=== PATIENT | female | born 1955 | race Caucasian/White ===

== ENCOUNTER 2016-07-12 16:17 | Emergency (ER) | payer OTHER ==
--- NOTE | 2016-07-13 02:35 | ED NURSING NOTES ---
Clinical Report - Nurses [facility] [place] [address] 07/12/2016 16:18 [id number] Triage time 16:25 Jul 12 2016. Acuity: LEVEL 4. Chief Complaint: SUICIDAL THOUGHTS and (Alcoholism). 16:35 07/12/16. SEPSIS SCREEN: Sepsis Screen. Negative (no infection suspected/documented). NANCY COMA SCORE: [place] Coma Scale: 15- eyes open spontaneously (4); best verbal response- oriented x 4 (5); best motor response- obeys commands (6). --16:35 Irene Ramachandran R.N. 16:37 07/12/16. BP: 124/85 (regular adult cuff) taken on the left arm, while sitting. HR: 96. RR: 18. O2 saturation: 97% on room air. Temp: 97.6 F (oral). Pain level now: 0/10. --16:38 Irene Ramachandran R.N. Weight: 58 kg stated. Height/Length: 67 inches Per Patient. BMI: 20. --16:27 Irene Ramachandran R.N. Medications Tums Oral. --16:29 Irene Ramachandran R.N. Omeprazole Oral (Tablet Delayed Release 20 mg). --16:29 Irene Ramachandran R.N. Allergies Demerol. --16:30 Irene Ramachandran R.N. morphine. --16:30 Irene Ramachandran R.N. Oxycodone. --16:30 Irene Ramachandran R.N. Tylenol. --16:30 Irene Ramachandran R.N. History Arrived by private vehicle. Historian: patient. Accompanied by family. Primary physician (Dr Ben Felix). Onset: just prior to arrival. ( "if I had a gun I would be right now"). She has had anxiety and sleeping difficulties and describes feelings of depression. Has been feeling agitated. 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 PAST MEDICAL HX: Anxiety. Last normal menstrual period- Hysterectomy. ( alcoholism). SOCIAL HX: Current every day heavy tobacco smoker- 1 pack per day. Heavy alcohol use; consumes liquor. Last drink was 1 hours ago. (1 Gallon vodka a week). No infectious disease exposure. ABUSE ASSESSMENT: No report of abuse. --16:35 Irene Ramachandran R.N. SOCIAL HX: History of occasional drug use: marijuana. (16:44 Jul 12 2016). --16:44 Irene Ramachandran R.N. PROBLEMS: Anxiety Reaction. Depression. Alcoholism. --16:32 Irene Ramachandran R.N. ADDITIONAL SURGERIES: Hysterectomy. Right elbow. --16:32 Irene Ramachandran R.N. Interventions ID band on patient. To treatment room. --16:35 Irene Ramachandran R.N. PHYSICAL ASSESSMENT Ambulatory to room. ( Patient says she is deaf right hear and has osteoporosis and sometimes have pain in rib cage). GENERAL / NEURO / PSYCH: Alert. Oriented X 4. Appears in no acute distress. Appears anxious. Speech within normal limits. Patient's mood/affect appears tearful. Patient appears calm and cooperative. Good eye contact. The patient describes suicidal thoughts (has mentioned things to her daughter but says she is not because she "doesnt want to leave a mess for her kids to clean up"). Patient appears neat and clean. RESPIRATORY: Respirations not labored. Breath sounds within normal limits. CVS: Normal heart rate and rhythm. Capillary refill less than 2 seconds. GI / : Abdomen soft and nontender. Bowel sounds within normal limits. SKIN: Skin intact. Skin is warm. Skin color is within normal limits. --16:39 Irene Ramachandran R.N. NURSING PROGRESS NOTES 16:40 07/12/16. The plan of care for this patient has been created. Head of bed elevated. Reassurance given. Suicide precautions initiated. Two patient identifiers checked. Call light placed in reach. Side rails up x 1. Bed placed in lowest position. Brakes of bed on. Patient ready for evaluation- chart flagged and ED physician notified. --16:40 Irene Ramachandran R.N. ( Patient at in visual location to nurses station, sister at bedside, patient gowned in yellow gown and items taken to locker #5 with Lock #3). --16:55 Irene Ramachandran R.N. 17:05 07/12/2016 Site #1 started via IV in the left antecubital space with an 20g angiocath, with aseptic technique and good blood return; one attempt. Blood drawn: rainbow set. Labeled in the presence of the patient and sent to the lab. Saline lock flushed with 10 mL saline. --17:05 Irene Ramachandran R.N. ( Patients sister left, patient says ok to release information to sister Loyda). --17:28 Irene Ramachandran R.N. ( Patient offered food and drink, she accepted sandwich, cheese, crackers, water and milk). --17:55 Irene Ramachandran R.N. ( Patient sleeping, will not wake for vitals). --19:15 Irene Ramachandran R.N. Care transferred and report given (Darlene RN). --19:31 Irene Ramachandran R.N. ( pt resting in bed, no distress noted). --20:11 Karen Silva ( pt ambulated to the restroom, no complications). --21:12 Karen Silva ( PAT team called). --21:29 Karen Silva 22:00 07/12/16. BP: 110/70. HR: 56. RR: 18. O2 saturation: 97%. Temp: 98.8 F. Pain level now: 0/10. --22:01 Karen Silva ( pt has been medically cleaned by Dr. Chávez). --00:37 Karen Silva ( pt resting in bed at this time, no distress noted.). --01:12 Karen Silva DISPOSITION / DISCHARGE 03:04 07/13/2016 Site #1 removed upon discharge. Catheter intact. Bandaid applied. --03:04 Karen Silva Departure time: 03:04. Condition at departure: stable. No learning barriers present. Discharge instructions provided and reviewed with the patient and family. Reviewed warnings (no driving). Reviewed medication(s) side effects, precautions, dosing and course information. Prescription(s) given to the six sigma black belt engineer. Reviewed referral to Alcoholics Anonymous and crisis hotline. Activity restrictions (no driving) reviewed. Patient and family verbalized understanding. Written instructions provided in Belgian. No treatment instructions, diet instructions, follow up contact number given or stop smoking instructions. No work note given or school note given. The patient was discharged by the physician. She was discharged home and accompanied by family. She left the Emergency Department ambulatory and via private vehicle. Family member driving. FALL RISK ASSESSMENT: Fall risk assessment completed. No fall risk identified. --03:04 Karen Silva 03:02 07/13/16. BP: 112/68. HR: 92. RR: 18. O2 saturation: 98%. Temp: deferred. Pain level now: 0/10. --03:04 Karen Silva Locked/Released at 07/13/2016 3:05 by Karen Silva
--- NOTE | 2016-07-13 02:35 | ED CLINICAL REPORT ---
Clinical Report - Physicians/Mid Levels [facility] [address] [place] [address] 07/12/2016 16:18 Patient: ZAHIDA COWAN Time Seen: 16:29; upon arrival, initial patient contact, initial documentation, patient care assumed. Arrived- By private vehicle. Not in custody. Historian- patient and family. HISTORY OF PRESENT ILLNESS Chief Complaint: ANXIOUS, DEPRESSED and SUICIDAL THOUGHTS and AGITATED. This started about 6 months ago. The patient has experienced situational problems related to personal finances and unemployment but not exhibited a behavior change and was not found wandering. (pt states the problems started about 6 mos ago, when she first went to dr to get help with smoking cessation, placed on chantrix, didn't like the side effects so she stopped taking it, went back to dr, placed on wellbutrin for smoking cessation and depression, lost her job, lost insurance, and then didn't like wellbutrin, so she stopped taking it too, started out with drinking occasional drink at dinner and the drinking got more and more and now she says she is drinking a gallon of vodka a week or more, states she would like to quit drinking and would like help for her suicidal thoughts, depression and anxiety). She is non-compliant with medication. No recent drug use. Recent heavy alcohol consumption. Last drink was less than 12 hours ago. Has not been eating or sleeping. She has had anxiety. Has been depressed. No anger, unusual behavior, paranoia, delusions or self-injury inflicted. No hallucinations. Has had suicidal thoughts (states that if she had a gun, she would be right now). Has highly lethal plan for suicide using gun. The method is unavailable. The symptoms are described as severe. No injury is present. Similar symptoms previously: Recent medical care: Not recently seen/assessed. REVIEW OF SYSTEMS No headache, dizziness, weakness, chest pain or abdominal pain. No vomiting, diarrhea, numbness, fever or difficulty breathing. All systems otherwise negative, except as recorded above. PAST HISTORY See nurses notes. ( PROBLEMS: Anxiety Reaction. Depression. Alcoholism. --16:32 Irene Ramachandran R.N. ADDITIONAL SURGERIES: Hysterectomy. Right elbow. --16:32 Irene Ramachandran R.N.). SOCIAL HISTORY Heavy tobacco smoker. Heavy alcohol use; consumes liquor. Patient is a longstanding alcoholic. History of heavy drug use: marijuana. Has social support. Has place to stay. FAMILY HISTORY Negative. ADDITIONAL NOTES The nursing notes have been reviewed with agreement regarding the chief complaint, HPI, ROS, PMH and patient medications and allergies. PHYSICAL EXAM Vital Signs: 07/12/2016 16:37 BP: 124/85. HR: 96. RR: 18. O2 saturation: 97%. Temp: 97.6 F. Pain level now: 0/10. Have been reviewed as normal and appear to be correct. Appearance: Alert. Appearance is normal. Anxious. She appears intoxicated. Eyes: Pupils equal, round and reactive to light. Neck: Normal inspection. Neck supple. CVS: Normal heart rate and rhythm. Heart sounds normal. Respiratory: Breath sounds normal. Chest nontender. Back: No tenderness. Skin: Skin warm and dry. Normal skin color. Normal skin turgor. Extremities: Extremities exhibit normal ROM. No lower extremity edema. Psych / Neuro: Oriented X 3. Abnormal mood and affect. Appears depressed. Speech normal. Cognition normal. Thought process and content normal. Insight and judgement normal. Cranial nerves normal (as tested). No cerebellar findings. No motor deficit. No sensory deficit. (anxious, tearful). LABS, X-RAYS, AND EKG Laboratory Tests: UA-Culture if indicated: (KAYLEIGH: 07/12/2016 16:45) ( MsgRcvd 07/12/2016 17:25) Final results Test Result Flag Units (Reference) URINE COLOR YELLOW URINE APPEARANCE CLOUDY URINE GLUCOSE NEGATIVE (NEGATIVE) URINE BILIRUBIN NEGATIVE (NEGATIVE) URINE KETONE NEGATIVE (NEGATIVE) URINE SPECIFIC GRAVITY <= 1.005 L (1.010-1.030) URINE PH 6.0 (5.0-8.0) URINE PROTEIN NEGATIVE (NEGATIVE) URINE UROBILINOGEN 0.2 EU/dL (0.2-1.0) URINE NITRITE NEGATIVE (NEGATIVE) URINE BLOOD 2+ (NEGATIVE) URINE LEUK ESTERASE NEGATIVE (NEGATIVE) URINE RBC 1-3 rbc/hpf (0-1) URINE WBC 0-1 wbc/hpf (0-1) URINE EPITHELIAL CELLS >15 EPI/hpf (0-5) URINE BACTERIA FEW (1+) (NONE SEEN) URINE COMMENT CULT NOT INDICATED URINE CULTURES ARE SET-UP BASED ON THE FOLLOWING CRITERIA:POSITIVE NITRITEPOSITIVE LEUKOCYTE ESTERASEGREATER THAN 10 WHITE BLOOD CELLSMODERATE (2+) OR GREATER BACTERIA CBC w Diff: (KAYLEIGH: 07/12/2016 17:00) ( [facility] 07/12/2016 17:20) Final results Test Result Flag Units (Reference) WHITE BLOOD COUNT 12.4 H K/uL (4.5-11.5) RED BLOOD COUNT 4.75 M/uL (4.00-5.20) HEMOGLOBIN 16.9 H gm/dL (12.0-16.0) HEMATOCRIT 49.4 H % (36.0-46.0) MEAN CELL VOLUME 104 H fL (80-100) MEAN CORPUSCULAR HGB 36 H pg (26-34) MEAN CORPUSCULAR HGB CONC 34 g/dL (31-37) RED CELL DISTRIBUTION WIDTH 14.4 % (11.6-14.8) PLATELET COUNT 219 K/uL (150-400) NEUTROPHIL % 54.3 % (50-75) LYMPH % 34.4 % (25-40) MONO % 8.1 % (3-14) EOSINOPHIL % 1.0 % (0-4) BASOPHIL % 2.2 H % (0-2) Ethyl Alcohol: (KAYLEIGH: 07/12/2016 21:00) ( [facility] 07/12/2016 21:25) Final results Test Result Flag Units (Reference) ETHYL ALCOHOL 66 H mg/dL (3-10) Urine Drug Screen: (KAYLEIGH: 07/12/2016 16:45) ( [facility] 07/12/2016 17:30) Final results Test Result Flag Units (Reference) AMPHETAMINE/METHAMPHETAMINE NEGATIVE (NEGATIVE) BARBITURATE NEGATIVE (NEGATIVE) BENZODIAZEPINE NEGATIVE (NEGATIVE) CANNABINOID POSITIVE H (NEGATIVE) COCAINE NEGATIVE (NEGATIVE) ECSTASY POSITIVE H (NEGATIVE) METHADONE NEGATIVE (NEGATIVE) OPIATE NEGATIVE (NEGATIVE) The urine drug screen is a qualitative screening test fordrug overdose and abuse. All screen results should beconsidered as presumptive.Drugs screened for are as follows:BenzodiazepinesCocaineAmphetamines/MetamphetaminesTHC (Tetrahydrocannabinol)OpiatesBarbituratesEcstasyMethadonePositive results are unconfirmed. For confirmation, notifythe lab for the specimen to be sent to the reference lab.All confirmations must be performed by a differentmethodology.The ingestion of natural herbal and plant productscontaining Ephedra/Ephedra metabolites can produce in urineone or more substances capable of cross reacting withamphetamine/methamphetamine immunoassays. These testsprovide a preliminary result only. A more specificalternative chemical method must be used to obtain aconfirmed analytical result. CMP: (KAYLEIGH: 07/12/2016 17:00) ( MsgRcvd 07/12/2016 17:30) Final results Test Result Flag Units (Reference) GLUCOSE 73 mg/dL (70-110) BUN 7 mg/dL (7-18) CREATININE 0.7 mg/dL (0.6-1.3) Estimated GFR >60 mL/min Estimated GFR- >60 mL/min Note: Persistent reduction over 3 months in eGFR<60 mL/min/1.73 m2 defines CKD. Patients with eGFR values>=60 mL/min/1.73 m2 may also have CKD if evidence ofpersistent proteinuria. Additional information may be foundat www.kidney.org. SODIUM 141 mmol/L (136-145) POTASSIUM 3.5 mmol/L (3.5-5.1) CHLORIDE 102 mmol/L (98-107) CARBON DIOXIDE 21 mmol/L (21-32) CALCIUM 8.8 mg/dL (8.5-10.1) TOTAL PROTEIN 7.7 g/dL (6.4-8.2) ALBUMIN 3.6 g/dL (3.3-5.0) BILIRUBIN, TOTAL 0.5 mg/dL (0.0-1.0) ALKALINE PHOSPHATASE 85 U/L (46-116) AST (SGOT) 58 H U/L (15-37) ALT (SGPT) 53 U/L (12-78) ETHYL ALCOHOL 185 H mg/dL (3-10) . PROGRESS AND PROCEDURES Course of Care: 18:25 07/12/16. went to room to discuss lab results, pt asleep, resp even and unlabored, pt snoring, nad, left alone to sleep 21:29 07/12/16. repeat etoh back, asked wood car builder to pat 21:45 07/12/16. went to update pt with lab results, pat being called, and pt was still asleep, resp even and unlabored, nad 23:00 07/12/16. reported off to Dr Chávez whom will assume care, awaiting pat arrival I reviewed the patient's history and study results with her and examined her. My findings were consistent with those noted by Johnny Roxanna except that the patient no longer appears intoxicated. - MW. Patient/family counseled. Differential Diagnosis: Other possible considerations: substance abuse, si, alcoholism, liver disease, bipolar, depression, anxiety. CLINICAL IMPRESSION Suicidal ideation Alcohol intoxication with alcohol dependence. Possible alcohol withdrawal. INSTRUCTIONS No driving or operating machinery while taking medication. Stay with responsible adult family member (or other responsible adult). No alcohol. Seek medical help to quit drinking. (Your sister is to hold your prescription for Librium. She is only to give you the medication for withdrawal symptoms if you have not been drinking alcohol as discussed. The). Warnings: Further evaluation is necessary. GENERAL WARNINGS: Return or contact your physician immediately if your condition worsens or changes unexpectedly, if not improving as expected, or if other problems arise. Prescription Medications: Zofran 4 mg: Take 1 orally every six hours as needed for nausea/vomiting. Dispense ten (10). No refills. Substitution is permissible. Librium 10 mg: take 1 orally every 8 hours as needed. Dispense ten (10). No refill. Substitution is permissible. Follow-up: Follow up with your doctor Friday in two days. Call for an appointment. Follow up with a psychiatrist- as recommended by your primary care physician. Understanding of the discharge instructions verbalized by patient and family. (Electronically signed by Jamal Chávez MD 07/15/2016 9:12)
--- NOTE | 2016-07-13 02:35 | ED ORDER SUMMARY ---
..... Patient: ZAHIDA COWAN OrderSheet [facility] VisitID: [id number] [place] [address] 61y, F Registration Date/Time: 07/12/2016 ORDER SHEET Weight: 58.0 kg (stated) Allergies: Demerol, morphine, Oxycodone, Tylenol GENERAL ORDERS: CBC w Diff Urgent (16:36 07/12/2016 HBivens A.R.N.P.) (Ack 16:41 Prateek) (Sent 16:53 JSanders R.N.) (17:04 JSanders R.N.) CMP Urgent (16:36 07/12/2016 HBivens A.R.N.P.) (Ack 16:41 Prateek) (17:04 JSanders R.N.) UA-Culture if indicated Urgent (16:36 07/12/2016 HBivens A.R.N.P.) (Ack 16:41 Prateek) (16:53 JSanders R.N.) Urine Urgent (16:36 07/12/2016 HBivens A.R.N.P.) (16:39 HBivens A.R.N.P.) (Cancelled: Other16:39 HBivens A.R.N.P.) Urine Drug Screen Urgent (16:36 07/12/2016 HBivens A.R.N.P.) (Ack 16:41 Prateek) (16:53 JSanders R.N.) Ethyl Alcohol Urgent (16:36 07/12/2016 HBivens A.R.N.P.) (Ack 16:41 Prateek) (17:04 JSanders R.N.) Ethyl Alcohol Urgent (18:26 07/12/2016 HBivens A.R.N.P.) (Ack 18:30 Gisel) (22:01 SRedmond) - (call pat) (21:29 07/12/2016 HBivens A.R.N.P.) (21:30 SRedmond) Vitals (21:45 07/12/2016 HBivens A.R.N.P.) (Ack 22:01 Cesar) (23:06 Silke Thompson.NJohnny) MEDICATION ORDERS: IV FLUIDS: IV Saline Lock (16:36 07/12/2016 Lennox A.R.N.P.) (17:05 Mery R.N.) ORDER SHEET NOTES: [Electronically signed by Darlene Martins R.N. (03:05 07/13/2016)] [Electronically signed by Jamal Chávez MD (09:12 07/15/2016)] [Electronically locked/signed by Darlene Martins R.N. (03:05 07/13/2016)]
--- NOTE | 2016-07-13 02:35 | ED ORDER SUMMARY ---
..... Patient: ZAHIDA COWAN OrderSheet [facility] VisitID: [id number] [place] [address] 61y, F Registration Date/Time: 07/12/2016 ORDER SHEET Weight: 58.0 kg (stated) Allergies: Demerol, morphine, Oxycodone, Tylenol GENERAL ORDERS: CBC w Diff Urgent (16:36 07/12/2016 HBivens A.R.N.P.) (Ack 16:41 Prateek) (Sent 16:53 JSanders R.N.) (17:04 JSanders R.N.) CMP Urgent (16:36 07/12/2016 HBivens A.R.N.P.) (Ack 16:41 Prateek) (17:04 JSanders R.N.) UA-Culture if indicated Urgent (16:36 07/12/2016 HBivens A.R.N.P.) (Ack 16:41 Prateek) (16:53 JSanders R.N.) Urine Urgent (16:36 07/12/2016 HBivens A.R.N.P.) (16:39 HBivens A.R.N.P.) (Cancelled: Other16:39 HBivens A.R.N.P.) Urine Drug Screen Urgent (16:36 07/12/2016 HBivens A.R.N.P.) (Ack 16:41 Prateek) (16:53 JSanders R.N.) Ethyl Alcohol Urgent (16:36 07/12/2016 HBivens A.R.N.P.) (Ack 16:41 Prateek) (17:04 JSanders R.N.) Ethyl Alcohol Urgent (18:26 07/12/2016 HBivens A.R.N.P.) (Ack 18:30 Gisel) (22:01 SRedmond) - (call pat) (21:29 07/12/2016 HBivens A.R.N.P.) (21:30 SRedmond) Vitals (21:45 07/12/2016 HBivens A.R.N.P.) (Ack 22:01 Cesar) (23:06 Silke Thompson.NJohnny) MEDICATION ORDERS: IV FLUIDS: IV Saline Lock (16:36 07/12/2016 Lennox A.R.N.P.) (17:05 Mery R.N.) ORDER SHEET NOTES: [Electronically signed by Darlene Martins R.N. (03:05 07/13/2016)] [Electronically signed by Jamal Chávez MD (09:12 07/15/2016)] [Electronically locked/signed by Darlene Martins R.N. (03:05 07/13/2016)]
--- NOTE | 2016-07-15 09:12 | ED MAR SUMMARY ---
..... Medication Administration Record [facility] [address] [place], [place] [id number] Patient: ZAHIDA COWAN Visit ID: [id number] 61y, F Weight: 58.0 kg Height/Length: 67 in BMI: 20 ALLERGIES: Tylenol, Oxycodone, morphine, Demerol
--- NOTE | 2016-07-15 09:12 | ED DISCHARGE INSTRUCTIONS ---
Patient: ZAHIDA COWAN General Instructions [facility] VisitID: [id number] [place] [address] 61y, F Registration Date/Time: 07/12/2016 Suicidal ideation Alcohol intoxication with alcohol dependence. INSTRUCTIONS No driving or operating machinery while taking medication. Stay with responsible adult family member (or other responsible adult). No alcohol. Seek medical help to quit drinking. (Your sister is to hold your prescription for Librium. She is only to give you the medication for withdrawal symptoms if you have not been drinking alcohol as discussed. The). Warnings: Further evaluation is necessary. GENERAL WARNINGS: Return or contact your physician immediately if your condition worsens or changes unexpectedly, if not improving as expected, or if other problems arise. Prescription Medications: Zofran 4 mg: Take 1 orally every six hours as needed for nausea/vomiting. Dispense ten (10). No refills. Substitution is permissible. Librium 10 mg: take 1 orally every 8 hours as needed. Dispense ten (10). No refill. Substitution is permissible. Follow-up: Follow up with your doctor Friday in two days. Call for an appointment. Follow up with a psychiatrist- as recommended by your primary care physician. Understanding of the discharge instructions verbalized by patient and family. ADDITIONAL INFORMATION Depression Depression is one of the most common mental health problems today. It is not just a state of unhappiness or sadness. It is a true disease. The cause seems to be related to a decrease in chemicals that transmit signals in the brain. Having a family history of depression, alcoholism or suicide increases the risk. Chronic illness, chronic pain, migraine headaches and high emotional stress also increase the risk. Depression can cause many different symptoms, such as: -- Loss of appetite -- Over-eating -- Not being able to sleep -- Sleeping too much -- Tiredness not related to physical exertion -- Restlessness or irritability -- Slowness of movement or speech -- Feeling depressed or withdrawn -- Loss of interest in things you once enjoyed -- Difficulty in concentrating, poor memory, have trouble making decisions -- Thoughts of harming or killing oneself, or thoughts that life is not worth living -- Low self-esteem The best treatment for depression is a combination of medicine and psychotherapy. Antidepressant medicines can reduce suffering and can improve the ability to function during the depressed period. Therapy can offer emotional support and help you understand emotional factors that may be causing the depression. Home Care: 1) Be kind to yourself. Make it a point to do things that you enjoy (gardening, walking in nature, going to a movie, etc.). Reward yourself for small successes. 2) Take care of your physical body. Eat a balanced diet (low in saturated fat and high in fruits and vegetables). Establish an exercise plan at least 3 times a week for 30 minutes. Even mild-moderate exercise (like brisk walking) can make you feel better. 3) Avoid alcohol, which can make depression worse. Follow-Up with your doctor as advised. It is important to keep in contact with a health care provider until your symptoms begin to improve. Get Prompt Medical Attention if any of the following occur: -- Feeling extreme depression, fear, anxiety, or anger toward yourself or others -- Feeling out of control -- Feeling that you may try to harm yourself or another -- Hearing voices that others do not hear -- Seeing things that others do not see -- Cant sleep or eat for 3 days in a row Alcohol Intoxication Alcohol intoxication occurs when you drink alcohol faster than your liver can remove it from your system. Alcohol intoxication affects your judgment and coordination. Very high blood alcohol levels can cause coma, very slow breathing and even . If you drink alcohol every day, this may gradually cause permanent damage to your liver, brain, heart, pancreas and other organs. Alcohol use during may cause permanent damage to the growing baby. Home Care: Do not drink any more alcohol. DO NOT DRIVE until all effects of the alcohol have worn off. Get lots of rest over the next few days. Drink plenty of water and other non-alcoholic liquids. Try to eat regular meals. If you have been drinking heavily on a daily basis, you may go through alcohol withdrawl. This is also called the shakes or DTs. The usual symptoms last 3 to 4 days and may include nervousness, shakiness, nausea, sweating or sleeplessness. During this time, it is best that you stay with family or friends who can help and support you. You can also admit yourself to a residential detox program. If your symptoms are severe, contact your doctor for medicines to help. Follow Up: If alcohol is causing a problem in your life, these and other organizations can help you: Alcoholics Anonymous offers support through a self-help fellowship. There are no dues or fees. See the Yellow Pages and call for time and place of meetings. www.aa.org Al-Anon offers support to families of alcohol users. 316.614.9697 www.al-anon.org [employer] [place] On Alcoholism And Drug Dependence 485-764-1744 www.ncadd.org There are also inpatient or residential alcohol detox programs. Check the Internet or phonebook Yellow Pages under Drug Abuse & Treatment Centers. Get Prompt Medical Attention if any of the following occur: there) Alcohol Withdrawal Alcohol withdrawal symptoms occur if you have been drinking steadily for at least several days, and your body gets used to the effect of alcohol. When you suddenly stop drinking (or, even just cut down your daily intake but continue to drink), you may develop alcohol withdrawal, also called the The usual symptoms last 3-4 days and include nervousness, shakiness, nausea, sweating, sleeplessness. In severe cases hallucinations (seeing things that are not there) and seizures can occur. Home Care: You will need plenty of rest and fluids over the next several days. Eat regular meals. Of course, do not drink any more alcohol. During this time, it is best that you stay with family or friends who can help and support you. You can also admit yourself to a residential detox program. Do not drive until all symptoms are gone and you are feeling better. If you were given sedative medication to reduce your symptoms, do not take it more often than prescribed and never take it with alcohol. Follow Up: Once you have gone through the withdrawal symptoms, you have fought half of the calles. To avoid the risk of returning to your previous drinking pattern, it is essential that you get follow-up support and treatment. Alcoholics Anonymous offers support through a self-help fellowship. There are no dues or fees. See the Yellow Pages and call for time and place of meetings. www.aa.org Al-Anon offers support to families of alcohol users. 771.635.1537 www.al-anon.org [employer] [place] On Alcoholism And Drug Dependence 101-456-7956 www.ncadd.org Residential alcohol detox programs are available. Check the Yellow Pages under Drug Abuse & Treatment Centers. Get Prompt Medical Attention if any of the following occur: Severe shakiness Hallucinations Seizure Fever over 100.5 F (38.0 C) oral Headache, confusion, extreme drowsiness, inability to awaken Increasing upper abdominal pain Repeated vomiting or vomiting blood Ondansetron Oral disintegrating tablet What is this medicine? ONDANSETRON (on MADELINE se samantha) is used to treat nausea and vomiting caused by chemotherapy. It is also used to prevent or treat nausea and vomiting after surgery. How should I use this medicine? These tablets are made to dissolve in the mouth. Do not try to push the tablet through the foil backing. With dry hands, peel away the foil backing and gently remove the tablet. Place the tablet in the mouth and allow it to dissolve, then swallow. While you may take these tablets with water, it is not necessary to do so. Talk to your it disaster recovery manager regarding the use of this medicine in children. Special care may be needed. What side effects may I notice from receiving this medicine? Side effects that you should report to your doctor or health childcare administrator as soon as possible: allergic reactions like skin rash, itching or hives, swelling of the face, lips, or tongue breathing problems dizziness fast or irregular heartbeat feeling faint or lightheaded, falls fever and chills swelling of the hands and feet tightness in the chest Side effects that usually do not require medical attention (report to your doctor or health childcare administrator if they continue or are bothersome): constipation or diarrhea headache What may interact with this medicine? Do not take this medicine with any of the following medications: -apomorphine -cisapride -dofetilide -dronedarone -pimozide -thioridazine -ziprasidone This medicine may also interact with the following medications: -carbamazepine -phenytoin -rifampicin -tramadol -other medicines that prolong the QT interval (cause an abnormal heart rhythm) What if I miss a dose? If you miss a dose, take it as soon as you can. If it is almost time for your next dose, take only that dose. Do not take double or extra doses. Where should I keep my medicine? Keep out of the reach of children. Store between 2 and 30 degrees C (36 and 86 degrees F). Throw away any unused medicine after the expiration date. What should I tell my health care provider before I take this medicine? They need to know if you have any of these conditions: heart disease history of irregular heartbeat liver disease low levels of magnesium or potassium in the blood an unusual or allergic reaction to ondansetron, granisetron, other medicines, foods, dyes, or preservatives or trying to get breast-feeding What should I watch for while using this medicine? Check with your doctor or health childcare administrator as soon as you can if you have any sign of an allergic reaction. Chlordiazepoxide Hydrochloride Oral capsule What is this medicine? CHLORDIAZEPOXIDE (klor dye az e POX michell) is a benzodiazepine. It is used to treat anxiety and alcohol withdrawal. How should I use this medicine? Take this medicine by mouth with a glass of water. Follow the directions on the prescription label. If this medicine upsets your stomach, take it with food or milk. Take your doses at regular intervals. Do not take your medicine more often than directed. If you have been taking this medicine regularly for some time, do not suddenly stop taking it. You must gradually reduce the dose or you may get severe side effects. Ask your doctor or health childcare administrator for advice. Even after you stop taking this medicine it can still affect your body for several days. Talk to your it disaster recovery manager regarding the use of this medicine in children. Special care may be needed. While this drug may be prescribed for children as young as 6 years for selected conditions, precautions do apply. What side effects may I notice from receiving this medicine? Side effects that you should report to your doctor or health childcare administrator as soon as possible: allergic reactions like skin rash, itching or hives, swelling of the face, lips, or tongue confusion, depression feeling faint or lightheaded, falls mood changes, excitability or aggressive behavior muscle cramps problems with balance, talking, walking restlessness tremors unusually weak or tired Side effects that usually do not require medical attention (report to your doctor or health childcare administrator if they continue or are bothersome): change in sex drive or performance constipation drowsiness menstrual changes nausea, vomiting What may interact with this medicine? cimetidine medicines for anxiety or sleeping problems, like alprazolam, lorazepam, or triazolam medicines for depression, mental problems or psychiatric disturbances medicines for HIV infection or AIDS prescription pain medicines rifampin, rifapentine, or rifabutin some medicines for seizures like carbamazepine, phenobarbital, phenytoin, or primidone What if I miss a dose? If you miss a dose, take it as soon as you can. If it is almost time for your next dose, take only that dose. Do not take double or extra doses. Where should I keep my medicine? Keep out of the reach of children. This medicine can be abused. Keep your medicine in a safe place to protect it from theft. Do not share this medicine with anyone. Selling or giving away this medicine is dangerous and against the law. Store at room temperature between 15 and 30 degrees C (59 and 86 degrees F). Throw away any unused medicine after the expiration date. What should I tell my health care provider before I take this medicine? They need to know if you have any of these conditions: an alcohol or drug abuse problem kidney or liver disease suicidal thoughts an unusual or allergic reaction to chlordiazepoxide, other benzodiazepines, foods, dyes, or preservatives or trying to get breast-feeding What should I watch for while using this medicine? Visit your doctor or health childcare administrator for regular checks on your progress. Your body can become dependent on this medicine. Ask your doctor or health childcare administrator if you still need to take it. You may get drowsy or dizzy. Do not drive, use machinery, or do anything that needs mental alertness until you know how this medicine affects you. To reduce the risk of dizzy and fainting spells, do not stand or sit up quickly, especially if you are an older patient. Alcohol may increase dizziness and drowsiness. Avoid alcoholic drinks. Do not treat yourself for coughs, colds or allergies without asking your doctor or health childcare administrator for advice. Some ingredients can increase possible side effects. You have been given the following additional information: Depression Alcohol Intoxication Alcohol Withdrawal Ondansetron Oral disintegrating tablet Chlordiazepoxide Hydrochloride Oral capsule No driving or operating machinery while taking medication. Stay with responsible adult family member (or other responsible adult). (Electronically signed by Jamal Chávez MD 07/15/2016 9:12)
--- NOTE | 2016-07-15 09:12 | ED MED RECONCILIATION SUMMARY ---
Patient: ZAHIDA COWAN Medication Reconciliation Report [facility] VisitID: [id number] [place] [address] 61y, F Registration Date/Time: 07/12/2016 Weight: 58.0 kg Height/Length: 67 in. BMI: 20.0 ALLERGIES: Demerol, morphine, Oxycodone, Tylenol The patient's Home Medications are listed below: THE FOLLOWING MEDICATIONS NEED TO BE RECONCILED: Omeprazole Oral (20 mg) Tums Oral The source(s) of the original Home Medication information: Not obtained. The following Medications were given to the patient in the Emergency Department: None. The following Medications were prescribed to the patient: Zofran 4 mg: Take 1 orally every six hours as needed for nausea/vomiting. Dispense ten (10). No refills. Substitution is permissible. -- Jamal Chávez MD Librium 10 mg: take 1 orally every 8 hours as needed. Dispense ten (10). No refill. Substitution is permissible. -- Jamal Chávez MD
--- NOTE | 2016-07-15 09:12 | ED DISCHARGE INSTRUCTIONS ---
Patient: ZAHIDA COWAN General Instructions [facility] VisitID: [id number] [place] [address] 61y, F Registration Date/Time: 07/12/2016 Suicidal ideation Alcohol intoxication with alcohol dependence. INSTRUCTIONS No driving or operating machinery while taking medication. Stay with responsible adult family member (or other responsible adult). No alcohol. Seek medical help to quit drinking. (Your sister is to hold your prescription for Librium. She is only to give you the medication for withdrawal symptoms if you have not been drinking alcohol as discussed. The). Warnings: Further evaluation is necessary. GENERAL WARNINGS: Return or contact your physician immediately if your condition worsens or changes unexpectedly, if not improving as expected, or if other problems arise. Prescription Medications: Zofran 4 mg: Take 1 orally every six hours as needed for nausea/vomiting. Dispense ten (10). No refills. Substitution is permissible. Librium 10 mg: take 1 orally every 8 hours as needed. Dispense ten (10). No refill. Substitution is permissible. Follow-up: Follow up with your doctor Friday in two days. Call for an appointment. Follow up with a psychiatrist- as recommended by your primary care physician. Understanding of the discharge instructions verbalized by patient and family. ADDITIONAL INFORMATION Depression Depression is one of the most common mental health problems today. It is not just a state of unhappiness or sadness. It is a true disease. The cause seems to be related to a decrease in chemicals that transmit signals in the brain. Having a family history of depression, alcoholism or suicide increases the risk. Chronic illness, chronic pain, migraine headaches and high emotional stress also increase the risk. Depression can cause many different symptoms, such as: -- Loss of appetite -- Over-eating -- Not being able to sleep -- Sleeping too much -- Tiredness not related to physical exertion -- Restlessness or irritability -- Slowness of movement or speech -- Feeling depressed or withdrawn -- Loss of interest in things you once enjoyed -- Difficulty in concentrating, poor memory, have trouble making decisions -- Thoughts of harming or killing oneself, or thoughts that life is not worth living -- Low self-esteem The best treatment for depression is a combination of medicine and psychotherapy. Antidepressant medicines can reduce suffering and can improve the ability to function during the depressed period. Therapy can offer emotional support and help you understand emotional factors that may be causing the depression. Home Care: 1) Be kind to yourself. Make it a point to do things that you enjoy (gardening, walking in nature, going to a movie, etc.). Reward yourself for small successes. 2) Take care of your physical body. Eat a balanced diet (low in saturated fat and high in fruits and vegetables). Establish an exercise plan at least 3 times a week for 30 minutes. Even mild-moderate exercise (like brisk walking) can make you feel better. 3) Avoid alcohol, which can make depression worse. Follow-Up with your doctor as advised. It is important to keep in contact with a health care provider until your symptoms begin to improve. Get Prompt Medical Attention if any of the following occur: -- Feeling extreme depression, fear, anxiety, or anger toward yourself or others -- Feeling out of control -- Feeling that you may try to harm yourself or another -- Hearing voices that others do not hear -- Seeing things that others do not see -- Cant sleep or eat for 3 days in a row Alcohol Intoxication Alcohol intoxication occurs when you drink alcohol faster than your liver can remove it from your system. Alcohol intoxication affects your judgment and coordination. Very high blood alcohol levels can cause coma, very slow breathing and even . If you drink alcohol every day, this may gradually cause permanent damage to your liver, brain, heart, pancreas and other organs. Alcohol use during may cause permanent damage to the growing baby. Home Care: Do not drink any more alcohol. DO NOT DRIVE until all effects of the alcohol have worn off. Get lots of rest over the next few days. Drink plenty of water and other non-alcoholic liquids. Try to eat regular meals. If you have been drinking heavily on a daily basis, you may go through alcohol withdrawl. This is also called the shakes or DTs. The usual symptoms last 3 to 4 days and may include nervousness, shakiness, nausea, sweating or sleeplessness. During this time, it is best that you stay with family or friends who can help and support you. You can also admit yourself to a residential detox program. If your symptoms are severe, contact your doctor for medicines to help. Follow Up: If alcohol is causing a problem in your life, these and other organizations can help you: Alcoholics Anonymous offers support through a self-help fellowship. There are no dues or fees. See the Yellow Pages and call for time and place of meetings. www.aa.org Al-Anon offers support to families of alcohol users. 464.650.9899 www.al-anon.org [employer] [place] [employer] Alcoholism And Drug Dependence 272-458-9808 www.ncadd.org There are also inpatient or residential alcohol detox programs. Check the Internet or phonebook Yellow Pages under Drug Abuse & Treatment Centers. Get Prompt Medical Attention if any of the following occur: there) Alcohol Withdrawal Alcohol withdrawal symptoms occur if you have been drinking steadily for at least several days, and your body gets used to the effect of alcohol. When you suddenly stop drinking (or, even just cut down your daily intake but continue to drink), you may develop alcohol withdrawal, also called the The usual symptoms last 3-4 days and include nervousness, shakiness, nausea, sweating, sleeplessness. In severe cases hallucinations (seeing things that are not there) and seizures can occur. Home Care: You will need plenty of rest and fluids over the next several days. Eat regular meals. Of course, do not drink any more alcohol. During this time, it is best that you stay with family or friends who can help and support you. You can also admit yourself to a residential detox program. Do not drive until all symptoms are gone and you are feeling better. If you were given sedative medication to reduce your symptoms, do not take it more often than prescribed and never take it with alcohol. Follow Up: Once you have gone through the withdrawal symptoms, you have fought half of the calles. To avoid the risk of returning to your previous drinking pattern, it is essential that you get follow-up support and treatment. Alcoholics Anonymous offers support through a self-help fellowship. There are no dues or fees. See the Yellow Pages and call for time and place of meetings. www.aa.org Al-Anon offers support to families of alcohol users. 884.291.6212 www.al-anon.org [employer] [place] [employer] Alcoholism And Drug Dependence 318-232-0141 www.ncadd.org Residential alcohol detox programs are available. Check the Yellow Pages under Drug Abuse & Treatment Centers. Get Prompt Medical Attention if any of the following occur: Severe shakiness Hallucinations Seizure Fever over 100.5 F (38.0 C) oral Headache, confusion, extreme drowsiness, inability to awaken Increasing upper abdominal pain Repeated vomiting or vomiting blood Ondansetron Oral disintegrating tablet What is this medicine? ONDANSETRON (on MADELINE se samantha) is used to treat nausea and vomiting caused by chemotherapy. It is also used to prevent or treat nausea and vomiting after surgery. How should I use this medicine? These tablets are made to dissolve in the mouth. Do not try to push the tablet through the foil backing. With dry hands, peel away the foil backing and gently remove the tablet. Place the tablet in the mouth and allow it to dissolve, then swallow. While you may take these tablets with water, it is not necessary to do so. Talk to your doctor of nurse anesthesia regarding the use of this medicine in children. Special care may be needed. What side effects may I notice from receiving this medicine? Side effects that you should report to your doctor or health post acute care registered nurse as soon as possible: allergic reactions like skin rash, itching or hives, swelling of the face, lips, or tongue breathing problems dizziness fast or irregular heartbeat feeling faint or lightheaded, falls fever and chills swelling of the hands and feet tightness in the chest Side effects that usually do not require medical attention (report to your doctor or health post acute care registered nurse if they continue or are bothersome): constipation or diarrhea headache What may interact with this medicine? Do not take this medicine with any of the following medications: -apomorphine -cisapride -dofetilide -dronedarone -pimozide -thioridazine -ziprasidone This medicine may also interact with the following medications: -carbamazepine -phenytoin -rifampicin -tramadol -other medicines that prolong the QT interval (cause an abnormal heart rhythm) What if I miss a dose? If you miss a dose, take it as soon as you can. If it is almost time for your next dose, take only that dose. Do not take double or extra doses. Where should I keep my medicine? Keep out of the reach of children. Store between 2 and 30 degrees C (36 and 86 degrees F). Throw away any unused medicine after the expiration date. What should I tell my health care provider before I take this medicine? They need to know if you have any of these conditions: heart disease history of irregular heartbeat liver disease low levels of magnesium or potassium in the blood an unusual or allergic reaction to ondansetron, granisetron, other medicines, foods, dyes, or preservatives or trying to get breast-feeding What should I watch for while using this medicine? Check with your doctor or health post acute care registered nurse as soon as you can if you have any sign of an allergic reaction. Chlordiazepoxide Hydrochloride Oral capsule What is this medicine? CHLORDIAZEPOXIDE (klor dye az e POX michell) is a benzodiazepine. It is used to treat anxiety and alcohol withdrawal. How should I use this medicine? Take this medicine by mouth with a glass of water. Follow the directions on the prescription label. If this medicine upsets your stomach, take it with food or milk. Take your doses at regular intervals. Do not take your medicine more often than directed. If you have been taking this medicine regularly for some time, do not suddenly stop taking it. You must gradually reduce the dose or you may get severe side effects. Ask your doctor or health post acute care registered nurse for advice. Even after you stop taking this medicine it can still affect your body for several days. Talk to your doctor of nurse anesthesia regarding the use of this medicine in children. Special care may be needed. While this drug may be prescribed for children as young as 6 years for selected conditions, precautions do apply. What side effects may I notice from receiving this medicine? Side effects that you should report to your doctor or health post acute care registered nurse as soon as possible: allergic reactions like skin rash, itching or hives, swelling of the face, lips, or tongue confusion, depression feeling faint or lightheaded, falls mood changes, excitability or aggressive behavior muscle cramps problems with balance, talking, walking restlessness tremors unusually weak or tired Side effects that usually do not require medical attention (report to your doctor or health post acute care registered nurse if they continue or are bothersome): change in sex drive or performance constipation drowsiness menstrual changes nausea, vomiting What may interact with this medicine? cimetidine medicines for anxiety or sleeping problems, like alprazolam, lorazepam, or triazolam medicines for depression, mental problems or psychiatric disturbances medicines for HIV infection or AIDS prescription pain medicines rifampin, rifapentine, or rifabutin some medicines for seizures like carbamazepine, phenobarbital, phenytoin, or primidone What if I miss a dose? If you miss a dose, take it as soon as you can. If it is almost time for your next dose, take only that dose. Do not take double or extra doses. Where should I keep my medicine? Keep out of the reach of children. This medicine can be abused. Keep your medicine in a safe place to protect it from theft. Do not share this medicine with anyone. Selling or giving away this medicine is dangerous and against the law. Store at room temperature between 15 and 30 degrees C (59 and 86 degrees F). Throw away any unused medicine after the expiration date. What should I tell my health care provider before I take this medicine? They need to know if you have any of these conditions: an alcohol or drug abuse problem kidney or liver disease suicidal thoughts an unusual or allergic reaction to chlordiazepoxide, other benzodiazepines, foods, dyes, or preservatives or trying to get breast-feeding What should I watch for while using this medicine? Visit your doctor or health post acute care registered nurse for regular checks on your progress. Your body can become dependent on this medicine. Ask your doctor or health post acute care registered nurse if you still need to take it. You may get drowsy or dizzy. Do not drive, use machinery, or do anything that needs mental alertness until you know how this medicine affects you. To reduce the risk of dizzy and fainting spells, do not stand or sit up quickly, especially if you are an older patient. Alcohol may increase dizziness and drowsiness. Avoid alcoholic drinks. Do not treat yourself for coughs, colds or allergies without asking your doctor or health post acute care registered nurse for advice. Some ingredients can increase possible side effects. You have been given the following additional information: Depression Alcohol Intoxication Alcohol Withdrawal Ondansetron Oral disintegrating tablet Chlordiazepoxide Hydrochloride Oral capsule No driving or operating machinery while taking medication. Stay with responsible adult family member (or other responsible adult). (Electronically signed by Jamal Chávez MD 07/15/2016 9:12)
--- NOTE | 2016-07-15 09:12 | ED MAR SUMMARY ---
..... Medication Administration Record [facility] [address] [place], [place] [id number] Patient: ZAHIDA COWAN Visit ID: [id number] 61y, F Weight: 58.0 kg Height/Length: 67 in BMI: 20 ALLERGIES: Tylenol, Oxycodone, morphine, Demerol
--- NOTE | 2016-07-15 09:12 | ED MED RECONCILIATION SUMMARY ---
Patient: ZAHIDA COWAN Medication Reconciliation Report [facility] VisitID: [id number] [place] [address] 61y, F Registration Date/Time: 07/12/2016 Weight: 58.0 kg Height/Length: 67 in. BMI: 20.0 ALLERGIES: Demerol, morphine, Oxycodone, Tylenol The patient's Home Medications are listed below: THE FOLLOWING MEDICATIONS NEED TO BE RECONCILED: Omeprazole Oral (20 mg) Tums Oral The source(s) of the original Home Medication information: Not obtained. The following Medications were given to the patient in the Emergency Department: None. The following Medications were prescribed to the patient: Zofran 4 mg: Take 1 orally every six hours as needed for nausea/vomiting. Dispense ten (10). No refills. Substitution is permissible. -- Jamal Chávez MD Librium 10 mg: take 1 orally every 8 hours as needed. Dispense ten (10). No refill. Substitution is permissible. -- Jamal Chávez MD
== END 2016-07-13 02:55 | disposition home or self-care (01) ==
LOC: ED SRH 16:17
DX: F10.229 Alcohol dependence with intoxication, unspecified (principal); R45.851 Suicidal ideations; Z56.0 Unemployment, unspecified; Z59.8 Other problems related to housing and economic circumstances; Z91.14 Patient's other noncompliance with medication regimen; F17.290 Nicotine dependence, other tobacco product, uncomplicated; Z88.6 Allergy status to analgesic agent; Z88.5 Allergy status to narcotic agent
CPT/HCPCS: 90004; 90074; 90100; 92010; 92760; 92761; 92762; 92763; 92764; 92765; 92766; 92767; 95059